=== PATIENT | female | born 1960 | race Caucasian/White ===

== ENCOUNTER 2018-12-30 11:02 | Inpatient (IN) | payer OTHER, MEDICAID ==
[2018-12-30] MEDS ORDERED: IOPAMIDOL (ISOVUE-300) 100 ML BTL ONE (12:34)
[2018-12-30] MEDS ORDERED: ACETAMINOPHEN 325 MG TAB PO PRN (12:40)
[2018-12-30] MEDS ORDERED: ONDANSETRON DISINTEGRATING 4 MG TAB PO PRN (12:40)
[2018-12-30] MEDS ORDERED: ONDANSETRON 4 MG/2 ML VIAL IVP PRN (12:40)
[2018-12-30 16:34] LABS: INR 1.09 (0.83-1.16); PROTIME(PATIENT) 13.7 SEC (12.0-15.0)
--- NOTE | 2018-12-30 23:02 | WOCRNPDOC ---
WOCRN Advanced Assessment Note - Skin Integrity Problem, Advanced Assess Sacrum Dermatitis Dressing Type: Open to Air Integumentary Issue Intervention: Barrier Cream Applied Deborah Wound Tissue: Blanching Wound Bed Color: [place] Wound Bed Constitution: Red/[place] - Non Granular Tissue Peripheral Edema Location & Description: Patient rolled to her left side with assist from ROBERT Call. Area cleaned with a deborah wipe. Patient with an anatomical depression over the sacrum and intertriginal dermatitis at the base where skin touches skin. Recommend calazime cream BID to clean skin. Wound care will not continue to round. Right Ischial Tuberosity Dressing Type: Open to Air Deborah Wound Tissue: Intact, Dry Wound Bed Color: [place] Skin Integrity Problem Comment: Patient with dry, peeling but intact skin to right ischial tuberosity. Patient states that she has never had a pressure injury but there is a small area of scarring to the area, possibly from a previous pressure injury. Will protect and moisturize the skin and add a pump to her bed to better the surface for her. As there is currently no wound, wound care will not continue to round.
[2018-12-31] MEDS: D5W 1/2 NS 1,000 ML IV SCH (10:45)
[2018-12-31] MEDS ORDERED: fentaNYL 100 MCG/2 ML INJ ONE ×3 (11:52→16:35)
[2018-12-31] MEDS ORDERED: PROPOFOL 200 MG/20 ML VIAL ONE (11:52)
[2018-12-31] MEDS ORDERED: MINERAL OIL 10 ML VIAL ONE (11:59)
[2018-12-31] MEDS ORDERED: levOFLOXACIN 500 MG/DEXTROSE 100 ML IV ONE (12:00)
[2018-12-31] MEDS ORDERED: IOPAMIDOL (ISOVUE-300) 100 ML BTL ONE ×2 (12:00→17:00)
[2018-12-31] MEDS ORDERED: LR 1,000 ML IV ONE (12:27)
[2018-12-31] MEDS ORDERED: GLYCOPYRROLATE 0.2 MG/1 ML VIAL ONE (12:35)
[2018-12-31] MEDS ORDERED: METOCLOPRAMIDE 10 MG/2 ML VIAL ONE (12:35)
[2018-12-31] MEDS ORDERED: PHENYLEPHRINE HCL 100 MCG/ML SYR ONE (12:35)
[2018-12-31] MEDS ORDERED: DEXAMETHASONE 4 MG/ML VIAL ONE (13:14)
--- NOTE | 2018-12-31 13:26 | POSTOPPROG ---
Post Op Note Date of Operation: 01/01/19 Surgeon: Helder Venegas (# [id number]) Anesthesia: GET(General Endotracheal) Pre-op Diagnosis: Large volume left nephroureterolithiasis Post-op Diagnosis: Large volume left nephroureterolithiasis Procedure: Left PCNL for stone volume < 2 cm & fluoroscopic guidance > 1 hour Findings: See op note Inf/Abcess present in the surg proc area at time of surgery?: No EBL: 50-100 (50 cc) Complications: None Bowel Protocol: N/A Clean Closure Performed: N/A Drains: Nephrostomy (14 Fr. Left nephrostomy tube, 8x28 cm left ureteral stent) Specimen(s): None
--- NOTE | 2018-12-31 14:36 | ASMTCMCOM ---
CM Note CM Note Notes: Patient admitted for removal or ureteral stone. She is s/p nephrostomy tube placement at [facility]. Patient lives alone. She has skilled and unskilled help through the Medicaid HCBS program. Her RN/EXHAUSTER are through [facility] (ROBERT Raymundo [phone]) and her homemaking is with [facility]. Her sister Carolyn lives nearby and is helpful. I anticipate she will d/c home with the same services. Case Management will follow. Date Signed: 12/31/2018 02:34 PM Electronically Signed By:Jaquelin Little RN
--- NOTE | 2018-12-31 15:02 | PDMN ---
Medical Necessity Medical necessity: Pt meets IP criteria per MD & MCG SG-US Urologic Surgery or Procedure; est los >2 mn for eval/tx of ureteral stone s/p nephrostomy tube placement; admit for L PCNL, further monitoring & Hospitalist consult; complex hx w/multiple medical problems; per H&P & order 12/30/18
[2018-12-31] MEDS ORDERED: ROCURONIUM 50 MG/5 ML VIAL ONE (16:39)
[2018-12-31] MEDS ORDERED: MEPERIDINE 25 MG/0.5 ML AMP IVP PRN (16:44)
[2018-12-31] MEDS ORDERED: ONDANSETRON 4 MG/2 ML VIAL IVP PRN (16:44)
[2018-12-31] MEDS ORDERED: HYDROmorphONE/DILAUDID 1 MG/ML INJ IVP PRN ×2 (16:44→17:40)
[2018-12-31] MEDS ORDERED: fentaNYL 100 MCG/2 ML INJ IVP PRN (16:44)
[2018-12-31] MEDS ORDERED: METOCLOPRAMIDE 10 MG/2 ML VIAL IVP PRN (16:44)
[2018-12-31] MEDS ORDERED: PROMETHAZINE HCL 25 MG/ML INJ IVP PRN (16:44)
[2018-12-31] MEDS ORDERED: NALOXONE HCL 0.4 MG/ML INJ IVP PRN (16:44)
[2018-12-31] MEDS ORDERED: LABETALOL HCL 5 MG/ML 20 ML MDV IVP PRN (16:44)
[2018-12-31] MEDS ORDERED: LR 500 ML IV PRN (16:44)
[2018-12-31] MEDS ORDERED: ALBUTEROL 3 ML DEYVIAL IH PRN (16:44)
--- NOTE | 2018-12-31 17:12 | POSTANESTH ---
Post Anesthetic Evaluation Cardiovascular Status: Normal, Stable Respiratory Status: Normal, Stable Level of Consciousness/Mental Status: Can Participate in Eval Pain Control: Adequate, Prn Tx Ordered Nausea/Vomiting Control: Adequate, Prn Tx Ordered Complications Possibly Related to Anesthesia: None Noted
[2018-12-31] MEDS ORDERED: HYDROCODONE/APAP 5/325 TAB PO PRN (17:40)
--- NOTE | 2018-12-31 18:02 | PDCONSULT ---
Parachute Crown Sewer Note: The patient is a pleasant 58-year-old female with past medical history of fairly advanced multiple sclerosis, nephrolithiasis, neurogenic bladder secondary to MS, chronic pain, spasticity, hypertension, urinary retention who was admitted by Urology for placement of of percutaneous nephrostomy with nephrolithotomy for impacted left renal stone at the [facility]. She is currently postop in the PACU. She does complain of some left-sided pain but seems to be well managed although she was just given a large dose of fentanyl. She denies any nausea or vomiting, chest pain, shortness of breath or other symptoms. Past medical history Fairly advanced multiple sclerosis Hypertension Nephrolithiasis Neurogenic bladder Spasticity Urinary retention Chronic suprapubic catheter Past surgical history Cholecystectomy Family history Noncontributory Social history She smokes cigarettes around to have a pack-a-day denied alcohol or drug use Allergies Latex and Tegretol Medications See medication reconciliation list Review of systems Ten point review systems was negative except as per HPI Objective Vitals Blood pressure 141/79, heart rate 81, respirations 16, oxygen saturation 95% on room air, temperature 36.5 degrees C General- obese female in no acute distress, lethargic HEENT- PERRLA, mucous membranes moist pink and acyanotic head is atraumatic normocephalic Cardiovascular- regular rhythm and rate no murmurs rubs gallops Lungs- clear to auscultation bilaterally Abdomen- nontender nondistended in all 4 quadrants with no organomegaly no guarding or rebound - left percutaneous nephrostomy in place, suprapubic catheter in place ostomy is clean and non erythematous. Extremities- no clubbing cyanosis edema or calf pain Skin- lesions rashes or ecchymosis Neuro- cranial nerves 2-12 grossly and trach no focal neurologic deficits, alert and oriented x3 Psych- mood and affect are appropriate LAD- no lymphadenopathy Assessment plan 58-year-old female with multiple sclerosis chronic suprapubic catheter admitted for impacted nephrolithiasis at the [facility] Nephrolithiasis- patient is postop day 0 status post placement of a left percutaneous nephrostomy with nephrolithotomy done by Interventional Radiology in conjunction with Urology. -postop management per Urology -continue antibiotics for infection Pyelonephritis- Patient was started on levofloxacin 750 mg q.day Multiple sclerosis- has a chronic port due to poor venous access. On Ocrevus. Would continue her medications for bladder spasms and spasticity. Hypertension- resume home Norvasc Spasticity- continue home Neurontin, tizanidine, and baclofen Hyperlipidemia- resume statin when taking p.o. Depression- on Prozac which should be fine to continue Prophylaxis- SCD, if she remains in-house would start Lovenox Dispo- inpatient for nephrolithiasis with placement of percutaneous nephrostomy Thank you for allowing us to participate in the care of this patient. Medicine will continue to follow
[2018-12-31] MEDS ORDERED: ONDANSETRON DISINTEGRATING 4 MG TAB PO PRN (20:57)
[2018-12-31] MEDS ORDERED: POLYETHYLENE GLYCOL 3350 17 GM PKT PO PRN (20:57)
[2018-12-31] MEDS ORDERED: MAGNESIUM HYDROXIDE 30 ML UDCUP PO PRN (20:57)
[2018-12-31] MEDS ORDERED: SENNOSIDES 1 TAB PO PRN (20:57)
[2018-12-31] MEDS ORDERED: ATORVASTATIN CALCIUM 10 MG TAB PO SCH (21:00)
[2018-12-31] MEDS: GABAPENTIN 400 MG CAP PO SCH (21:25)
[2018-12-31] MEDS: traMADol 50 MG TAB PO SCH (21:26)
[2018-12-31] MEDS: BACLOFEN 10 MG TAB PO SCH (21:27)
[2018-12-31] MEDS: OXYBUTYNIN CHLORIDE 5 MG TAB PO SCH (21:27)
[2018-12-31] MEDS: DOCUSATE SODIUM 100 MG CAP PO SCH (21:27)
[2018-12-31] MEDS: FLUoxetine 20 MG CAP PO SCH (21:34)
[2019-01-01] MEDS: D5W 1/2 NS 1,000 ML IV SCH (02:29)
[2019-01-01] MEDS: FLUoxetine 20 MG CAP PO SCH (09:27)
[2019-01-01] MEDS: traMADol 50 MG TAB PO SCH ×2 (09:28→17:03)
[2019-01-01] MEDS: BACLOFEN 10 MG TAB PO SCH ×2 (09:29→17:04)
[2019-01-01] MEDS: DOCUSATE SODIUM 100 MG CAP PO SCH (09:29)
[2019-01-01] MEDS: GABAPENTIN 400 MG CAP PO SCH ×2 (09:29→17:04)
[2019-01-01] MEDS: OXYBUTYNIN CHLORIDE 5 MG TAB PO SCH ×2 (09:29→17:03)
--- NOTE | 2019-01-01 10:28 | GOP ---
[f rep st] OPERATIVE REPORT DATE OF OPERATION: 12/31/2018 SURGEON: Helder Venegas MD ANESTHESIA: General endotracheal. PREOPERATIVE DIAGNOSIS: Large-volume left nephrolithiasis (greater than 2 cm) with history of urosepsis requiring nephrostomy tube placement. POSTOPERATIVE DIAGNOSIS: Large volume left nephroureterolithiasis (greater than 2 cm) with history of urosepsis requiring nephrostomy tube placement. PROCEDURE PERFORMED: 1. Right percutaneous nephrostolithotomy up to 2 cm with fluoroscopic guidance greater than 1 hour. 2. Placement of antegrade right ureteral catheterization and attempted stenting by way of established nephrostomy tract utilizing fluoroscopic guidance. FINDINGS: Large severely impacted left proximal ureteral calculus. Another calculus that was noted on preoperative CT imaging in the left upper pole was not visualized during this operation. SPECIMENS: None. ESTIMATED BLOOD LOSS: Approximately 50 cc. INDICATIONS: This woman was admitted to the hospital yesterday (12/30) following left-sided antegrade nephrostogram in preparation for surgery on December 31. The indications for the procedures as well as potential risks and complications were discussed with the patient and her sister (sister has power of patent attorney) in comprehensive detail prior to surgery. All questions were answered and they wished to proceed as scheduled. DESCRIPTION OF PROCEDURE: The patient was brought to the operating room and administered general endotracheal anesthesia. She was carefully placed in the prone position with all appropriate pressure points padded. Care was taken to not cause displacement of her indwelling chronic suprapubic catheter and padding was also provided around her colostomy. The back was sterilely prepped and draped in standard fashion. Dr. Kincaid from Interventional Radiology then proceeded to attempt to place a working nephroscopic sheath through the established mid pole nephrostomy tract. However, due to the severe impaction of the left proximal ureteral calculus, measuring approximately 17-18 mm long, he was unable to gain access with a wire around the calculus and into the ureter. There was also a fairly acute angle between the established nephrostomy tract and the proximal ureter that would make it very difficult to treat the large calculus through this access. Therefore, after collective discussions between myself and Dr. Kincaid, he proceeded with placing a new nephroscopic tract in an upper pole calyx to allow for easier access to the renal pelvis and proximal ureter. He was still unable to gain wire access beyond the calculus through this new approach. Nonetheless, he placed a wire into the renal pelvis and a working 32-St Helenian nephroscopic sheath. I then began the nephroscopic portion of the procedure with a rigid nephroscope through the upper pole tract. The renal collecting system urothelium was noted to be quite disrupted and chronically inflamed. The renal pelvis was very small. I was ultimately able to identify the ureteropelvic junction, but could not advance the ureteroscope through the UPJ due to its very small caliber/ diameter. I then switched to flexible nephroscopy. Again, the ureter was extremely tight and would not allow for passage of the nephroscope through the ureteropelvic junction due to its small caliber. However, using fluoroscopic guidance, I was able to pass a 0.035 inch angle-tipped hydrophilic guidewire through this approach and around the large impacted proximal ureteral calculus, and advanced it into the bladder as confirmed fluoroscopically. I placed 2 wires ultimately through this approach down the left ureter and into the bladder. I then decided to switch to flexible ureteroscopy through the established nephrostomy tract. I was able to navigate the ureteroscope over one of the placed wires and down into the proximal ureter until I was able to visualize the large proximal impacted ureteral calculus. I then removed the guidewire running through the flexible ureteroscope in order to allow for treatment of the calculus. There was a severe amount of periureteral inflammation and mucosal edema surrounding the severely impacted calculus. The appearance was consistent with a calculus that had been at that location and impacted for potentially several months, if not longer. I then used a 200 micron holmium laser fiber to carefully fragment the large impacted calculus as much as possible. This created numerous small fragments which I tried to flush with normal saline through the scope using an additional syringe for increased hydrostatic pressure. The visualization ultimately became more and more difficult due to small amounts of bleeding that limited visualization through my small working instrument. I fragmented what appeared to be at least 60-70% of the calculus. There was still some calculus remaining in the proximal ureter that appeared to be adherent to the ureteral wall, which I left in situ due to poor visualization at this point. I then decided it would be best to place an antegrade left ureteral stent followed by a separate left-sided nephrostomy tube. I then removed the endoscopic instruments, as well as the 32-St Helenian nephroscopic sheath while keeping [address] down the left ureter and into the bladder. I used a combination of different wires and peel-away sheaths in order to try and place an antegrade hydrophilic left ureteral stent. However, I encountered a fair amount of buckling in the region of the renal pelvis that made it difficult to advance an antegrade stent all the way into the bladder. I then enlisted Dr. Kincaid's assistance and he was able to fully advance a ureteral stent alongside the remaining portion of the calculus and into the left ureter. The stent was properly positioned as noted fluoroscopically in the bladder as well as in the kidney. This was an 8-St Helenian x 28 cm ureteral stent. He then proceeded to also place a 14-St Helenian nephrostomy tube which was pigtailed within the renal pelvis. I then secured the nephrostomy tube to the skin with a 2-0 silk suture. It was then dressed with 4x4s with a ski slope dressing, 4 x 4 gauze, then tape. The nephrostomy tube was connected to bag drainage. The patient was then turned back over to the supine position. She was ultimately awakened, extubated, transferred to her bed, then taken to recovery room. She tolerated the procedure well overall. COMPLICATIONS: None. DISPOSITION: She was transferred to the recovery room in stable condition and will be transferred back to the floor for postoperative care. She will ultimately need to undergo retrograde left ureteroscopy with treatment of the residual left ureteral calculus disease within a few weeks. I am hoping that the indwelling ureteral stent will allow for passive dilation of the ureter as well as reduce some of the periureteral inflammation in the area of the impacted calculus. Arrangements will also be made for an antegrade nephrostogram and removal of nephrostomy tube through Interventional Radiology for early next week. /[id number]/MODL MTDD
[2019-01-01] MEDS ORDERED: levOFLOXACIN 500 MG/DEXTROSE 100 ML IV ONE (11:00)
[2019-01-01 12:28] VITALS: BP 134/74
--- NOTE | 2019-01-01 15:02 | HOSPPROG ---
Hospitalist Progress Note Assessment/Plan: 58 yo F w MS pod 1 from complex procedure for distal L ureteral stone home today see dc summary Subjective: feels well. alert. ready for dc Objective: Vital Signs Temp Pulse Resp BP Pulse Ox 36.5 C 100 16 134/74 H 93 01/01/19 12:00 01/01/19 12:00 01/01/19 12:00 01/01/19 12:00 01/01/19 12:00 Laboratory Results 01/01/19 05:15 01/01/19 05:15 12/31/18 01/01/19 01/02/19 05:59 05:59 05:59 Intake Total 350 2900 Output Total 750 950 Balance -400 1950 PT 13.7 SEC (12.0-15.0) 12/30/18 16:18 INR 1.09 (0.83-1.16) 12/30/18 16:18 - Physical Exam Constitutional: no apparent distress, appears nourished Eyes: PERRL, anicteric sclera Ears, Nose, Mouth, Throat: moist mucous membranes, hearing normal Cardiovascular: regular rate and rhythym, no murmur, rub, or gallop Respiratory: no respiratory distress, no rales or rhonchi Gastrointestinal: normoactive bowel sounds, soft, non-tender abdomen Genitourinary: other (SP catheter), No barbosa in urethra Skin: warm, normal color Musculoskeletal: No full muscle strength Neurologic: AAOx3, sensation intact bilaterally Psychiatric: interacting appropriately ICD10 Worksheet Patient Problems: Problems Problem Status Onset Chest pain Acute
--- NOTE | 2019-01-01 15:03 | PDIAF ---
- Diagnosis Diagnosis: nephrolithiasis Code Status: Full Code - Medication Management Additional Medication Instructions: She will have bleeding in her urine until the nephrostomy tubes are removed. bleeding can very from day to day. Discharge Medications: electronically signed and located in the Home Medication List. - Orders Services needed: Home Correction Care Face to Face: I certify that this patient was under my care and that I had the required [id number] encounter meeting the encounter requirements on the discharge day. My findings support the fact that the patient is homebound as defined in Home Care Face to Face Continued: CMS Chapter 7 Medicare Benefits Manual 30.1.1 , The condition of the patient is such that there exists a normal inability to leave home and consequently, leaving home would require a considerable and taxing effort. - Follow Up Care Current Providers and Referrals: Doctor Not,On Staff, [Primary Care Provider] -
--- NOTE | 2019-01-01 15:20 | GDS ---
[f rep st] DISCHARGE SUMMARY DISCHARGE DIAGNOSES: 1. Multiple sclerosis with significant functional limitations, wheelchair-bound with ostomy and supr apubic catheter. 2. Distal left ureteral stone status post percutaneous nephrostomy tube with stent placement. Pleprasad e see operative note by Dr. Helder Venegas for details; uncomplicated procedure. 3. Hypertension. 4. Depression. Please see consultation by Dr. Singh Carmona. The patient is seen by hospital medicine service consult for assistance with medical comorbidities. The patient did well from a postoperative standpoint. She is discharged home today. She has outpati ent followup in place for nephrostomy tube maintenance and ultimately removal, as well as a retrograd e attempt at complete removal or the stone as this is not accomplished in the anterograde procedure. I refer the reader to the operative note for further details. Greater than 30 minutes was spent on this discharge. /[id number]/MODL
--- NOTE | 2019-01-01 15:50 | ASMTDCNOTE ---
Case Management Discharge Discharge Order Complete? Answers: Yes Patient to Obtain Answers: via Family Medications Transportation Arranged Answers: Family/Friends Faxed Final Orders Answers: Yes Notes: [facility] to [facility] Agency/Facility Transfer Answers: Yes Notes: [facility] Report Printed & Faxed to home care Receiving Agency Family Notified Answers: Yes Notes: Sister present Discharge Comments Notes: CM met with patient and sister prior to discharge and informed them CM contacted [facility] of patient discharge and also sent discharge info. The patient's sister states she will contact [facility] for Homemaker support and will transport patient home. CM available to support if additional CM/DC needs arise. Date Signed: 01/01/2019 03:49 PM Electronically Signed By:Heidy Taveras
--- NOTE | 2019-01-01 16:55 | SOAPPROG ---
MIKAEL Progress Note Assessment/Plan: Assessment: POD 1 s/p left PCNL and antegrade ureteral stent placement - stable. Plan: OK to discharge home w/ nephrostomy tube, to be removed as an outpatient through IR on Friday. My office will coordinate scheduling outpatient left ureteroscopy for treatment of remaining left ureteral & renal stone burden. Subjective: Complains of occasional mild left flank pain. Otherwise, no complaints. Objective: Vital Signs Temp Pulse Resp BP Pulse Ox 36.5 C 100 16 134/74 H 93 01/01/19 12:00 01/01/19 12:00 01/01/19 12:00 01/01/19 12:00 01/01/19 12:00 Laboratory Results 01/01/19 05:15 01/01/19 05:15 12/31/18 01/01/19 01/02/19 05:59 05:59 05:59 Intake Total 350 2900 Output Total 750 950 Balance -400 1950 PT 13.7 SEC (12.0-15.0) 12/30/18 16:18 INR 1.09 (0.83-1.16) 12/30/18 16:18 Physical Exam - Physical Exam General Appearance: alert, obese Abdomen: soft (obese), other (SP tube draining clear urine) Back: Other (nephrostomy tube draining lightly blood-tinged urine) Neuro/Psych: alert, normal mood/affect ICD10 Worksheet Patient Problems: Problems Problem Status Onset Chest pain Acute
== END 2019-01-01 18:54 | disposition home health service (06) | DRG 661 ==
LOC: FIMAGING 11:02 → F3E 12:40 → F1N 13:23
PROVIDERS: ADMIT Specialist; ATTEND Specialist
DX: N20.2 Calculus of kidney with calculus of ureter (principal); G35 Multiple sclerosis; Z99.3 Dependence on wheelchair; I10 Essential (primary) hypertension; F32.9 Major depressive disorder, single episode, unspecified; R33.9 Retention of urine, unspecified; N31.9 Neuromuscular dysfunction of bladder, unspecified; E78.5 Hyperlipidemia, unspecified; G89.29 Other chronic pain; Z72.0 Tobacco use; Z93.6 Other artificial openings of urinary tract status; Z93.3 Colostomy status
CPT/HCPCS: C1725; C1729; C1758; C1769; C1894; J1100; J1642; J1956; J2370; J2704; J2765; J3010; Q9967

== ENCOUNTER 2019-01-02 16:34 | Inpatient (IN) | payer OTHER, MEDICAID ==
[2019-01-02] MEDS ORDERED: ACETAMINOPHEN 325 MG TAB PO ONE (17:13)
--- NOTE | 2019-01-02 17:13 | EDPHY ---
H & P Stated Complaint: kidney stone removal 01/01, fever starting this am, pain in left abdomen Time Seen by Provider: 01/02/19 16:44 HPI/ROS: CHIEF COMPLAINT: Fever HISTORY OF PRESENT ILLNESS: 58-year-old female with multiple sclerosis presents with fever. She was recently admitted for urinary obstruction secondary to a 2 cm proximal left ureteral stone. She had a nephrostomy tube and stent placed and underwent lithotripsy. She was discharged home yesterday feeling fine. Onset of fever this morning, associated with generalized weakness. Usually is able to ambulate on her own, but today is having trouble sitting up unassisted because of weakness. She is tolerating oral fluids and food well, without nausea or vomiting. Mild left-sided abdominal pain started yesterday. She currently has a German catheter and a left nephrostomy tube in place. REVIEW OF SYSTEMS: complete 10 point ROS reviewed and is negative except for the noted elements in the HPI - Personal History Current Tetanus/Diphtheria Vaccine: Yes Current Tetanus Diphtheria and Acellular Pertussis (TDAP): Yes - Medical/Surgical History Hx Asthma: No Hx Chronic Respiratory Disease: No Hx Diabetes: No Hx Cardiac Disease: No Hx Renal Disease: No Hx Cirrhosis: No Hx Alcoholism: No Hx HIV/AIDS: No Hx Splenectomy or Spleen Trauma: No Other PMH: MS, left-sided weakness, kidney stones, colostomy, left nephrostomy - Social History Smoking Status: Heavy smoker Alcohol Use: Sober Drug Use: None - Physical Exam Exam: General Appearance: Alert, pleasant, appears fatigued Eyes: Pupils equal and round, no conjunctival pallor ENT, Mouth: Mucous membranes moist Neck: Normal inspection Respiratory: Lungs are clear to auscultation anteriorly Cardiovascular: Regular tachycardia Gastrointestinal: Abdomen is soft, mild left upper quadrant tenderness Neurological: Alert and oriented, left-sided weakness Skin: Warm and dry, no rash Extremities: Normal inspection Psychiatric: Mood and affect normal Constitutional: Initial Vital Signs Temperature (C) 37.4 C 01/02/19 16:42 Heart Rate 110 H 01/02/19 16:42 Respiratory Rate 18 01/02/19 16:42 Blood Pressure 133/73 H 01/02/19 16:42 O2 Sat (%) 94 01/02/19 16:42 O2 Delivery Mode Room Air O2 (L/minute) 2 Allergies/Adverse Reactions: carbamazepine [From Tegretol] Allergy (Verified 01/02/19 16:42) blisters/ rash latex Allergy (Verified 01/02/19 16:42) blisters/ rash Home Medications: Medication Instructions Recorded Aspirin [Aspirin 325 mg (*)] 325 mg PO DAILY 12/30/18 Baclofen [Baclofen 10 mg (*)] 10 mg PO TID@08,1430,20 12/30/18 Calcium Carb W/Vit D [Calcium Carb 500 mg PO DAILY14 12/30/18 W/Vit D 500/200 (*)] Docusate Sodium [Colace 100 MG (*)] 100 mg PO BID 12/30/18 FLUoxetine [Prozac 20 MG (*)] 80 mg PO DAILY 12/30/18 Gabapentin [Neurontin 400 MG (*)] 400 mg PO TID@08,1430,12/30/18 Herbals/Supplements -Info Only 1 ea PO DAILY 12/30/18 Ibuprofen [Motrin (*)] 600 mg PO Q6HRS PRN 12/30/18 Magnesium Hydroxide [Milk of 5 ml PO HS PRN 12/30/18 Magnesia] Naproxen Sodium [Aleve 220 MG (*)] 220 mg PO BID PRN 12/30/18 Nystatin [Mycostatin Cream (RX)] 1 rubi TP BID PRN 12/30/18 Ocrelizumab [Ocrevus] 600 mg IV .[id number] 12/30/18 Ondansetron Odt [Zofran Odt 4 mg 4 mg PO Q4 PRN 12/30/18 (*)] Oxybutynin Chloride [Ditropan] 5 mg PO TID@08,1430,12/30/18 Polyethylene Glycol 3350 [Miralax 17 gm PO DAILY PRN 12/30/18 17 gm (*)] Sennosides [Senna Lax] 8.6 mg PO DAILY PRN 12/30/18 Simvastatin [Zocor] 20 mg PO HS 12/30/18 amLODIPine BESYLATE [Norvasc 10 mg 10 mg PO DAILY 12/30/18 (*)] tiZANidine HCL [Zanaflex 2MG (*)] 4 mg PO DAILY@08 12/30/18 tiZANidine HCL [Zanaflex 2MG (*)] 8 mg PO HS 12/30/18 traMADol [Ultram 50 mg (*)] 100 mg PO TID@08,1430,20 12/30/18 Medical Decision Making ED Course/Re-evaluation: This patient presents with fever and generalized weakness. Clinical presentation strongly suggests urinary source for infection, especially given recent urologic procedure, nephrostomy and German catheter placement. Urinalysis reveals pyuria and bacteriuria, consistent with urinary tract infection. Urine culture sent. Chest x-ray is unremarkable. Urine and blood cultures drawn. Rocephin 1 g IV given. Does not meet SIRS criteria. IV normal saline 1 L given and Tylenol 650 mg orally. The patient remained stable throughout her emergency department stay. The hospitalist service was consulted for admission. Differential Diagnosis: Differential diagnosis includes pyelonephritis, cholecystitis, influenza, cellulitis, pneumonia, abscess, meningitis. - Data Points Laboratory Results: Laboratory Results 01/02/19 16:47 01/02/19 16:47 Microbiology Results: MICROBIOLOGY 01/02/19 16:49 Urine,Catheterized Urine Culture - Preliminary Yeast Species Medications Given: Acetaminophen (Tylenol) 650 mg PO Q4HRS PRN PRN Reason: Pain, Mild/Fever, Can Take PO Stop: 07/01/19 18:33 Last Admin: 01/03/19 18:43 Dose: 650 mg Atorvastatin Calcium (Lipitor) 10 mg PO HS [facility] Stop: 07/01/19 21:59 Last Admin: 01/02/19 23:20 Dose: 10 mg Baclofen (Baclofen) 10 mg PO TID@08,1429,20 [facility] Stop: 07/02/19 07:59 Last Admin: 01/03/19 14:14 Dose: 10 mg Docusate Sodium (Colace) 100 mg PO BID EMILY Stop: 07/02/19 08:59 Last Admin: 01/03/19 08:09 Dose: 100 mg Fluconazole (Diflucan) 200 mg PO DAILY [facility] Stop: 02/01/19 18:44 Last Admin: 01/03/19 08:29 Dose: 200 mg Fluoxetine HCl (Prozac) 80 mg PO DAILY [facility] Stop: 07/02/19 08:59 Last Admin: 01/03/19 08:09 Dose: 80 mg Gabapentin (Neurontin) 400 mg PO TID@08,1430,20 [facility] Stop: 07/02/19 07:59 Last Admin: 01/03/19 14:14 Dose: 400 mg Ceftriaxone Sodium/Dextrose (Rocephin 1 Gm (Premix)) 50 mls @ 100 mls/hr IV DAILY [facility] PRN Reason: Protocol Stop: 02/02/19 08:59 Last Admin: 01/03/19 08:03 Dose: 50 mls Sodium Chloride (Ns) 1,000 mls @ 125 mls/hr IV CONT [facility] Stop: 07/01/19 18:44 Last Admin: 01/03/19 14:17 Dose: 1,000 mls Oxybutynin Chloride (Ditropan) 5 mg PO TID@08,1430,20 [facility] Stop: 07/02/19 07:59 Last Admin: 01/03/19 14:14 Dose: 5 mg Tizanidine HCl (Zanaflex) 4 mg PO DAILY@08 [facility] Stop: 07/02/19 07:59 Last Admin: 01/03/19 08:08 Dose: 4 mg Tramadol HCl (Ultram) 100 mg PO TID@08,1430,20 [facility] Stop: 07/02/19 07:59 Last Admin: 01/03/19 14:12 Dose: 100 mg Discontinued Medications Acetaminophen (Tylenol) 650 mg PO EDNOW ONE Stop: 01/02/19 17:14 Last Admin: 01/02/19 17:35 Dose: 650 mg Heparin Sodium (Porcine) (Heparin Sc Injection) 5,000 unit SC Q8 [facility] Stop: 07/01/19 21:59 Last Admin: 01/02/19 20:48 Dose: 5,000 unit Sodium Chloride (Ns) 1,000 mls @ 0 mls/hr IV ONCE ONE; Wide Open PRN Reason: Protocol Stop: 01/02/19 17:34 Last Admin: 01/02/19 17:46 Dose: 1,000 mls Ceftriaxone Sodium/Dextrose (Rocephin 1 Gm (Premix)) 50 mls @ 100 mls/hr IV EDNOW ONE PRN Reason: Protocol Stop: 01/02/19 18:23 Last Admin: 01/02/19 18:35 Dose: 50 mls Departure - Departure Disposition: [facility] Inpatient Acute Clinical Impression: Urinary tract infection Qualifiers: Urinary tract infection type: catheter-associated UTI Indwelling urinary catheter type: indwelling urethral catheter Encounter type: initial encounter Qualified Code(s): T83.511A - Infection and inflammatory reaction due to indwelling urethral catheter, initial encounter; N39.0 - Urinary tract infection , site not specified; N39.0 - Urinary tract infection, site not specified Condition: Fair
[2019-01-02 17:17] LABS: PLATELET COUNT 197 10^3/uL (150-400)
[2019-01-02] MEDS ORDERED: NS 1,000 ML IV ONE (17:33)
[2019-01-02] MEDS ORDERED: HYDROmorphONE/DILAUDID 1 MG/ML INJ IVP PRN (18:34)
[2019-01-02] MEDS ORDERED: ACETAMINOPHEN 325 MG TAB PO PRN (18:34)
[2019-01-02] MEDS: NS 1,000 ML IV SCH (20:50)
[2019-01-02] MEDS ORDERED: SENNOSIDES 1 TAB PO PRN (21:56)
[2019-01-02] MEDS ORDERED: POLYETHYLENE GLYCOL 3350 17 GM PKT PO PRN (21:56)
[2019-01-02] MEDS ORDERED: NYSTATIN 15 GM CR TUBE TP PRN (21:56)
[2019-01-02] MEDS ORDERED: HEPARIN 5,000 UNIT/0.5 ML INJ SC SCH (22:00)
[2019-01-02] MEDS: ATORVASTATIN CALCIUM 10 MG TAB PO SCH (23:20)
[2019-01-02] MEDS: FLUCONAZOLE 100 MG TAB PO SCH (23:24)
--- NOTE | 2019-01-03 00:38 | GHP ---
[f rep st] HISTORY AND PHYSICAL DATE OF ADMISSION: 01/02/2019 CHIEF COMPLAINT: Subjective fevers. HISTORY OF PRESENT ILLNESS: The patient is a pleasant 58-year-old female with a past medical history of multiple sclerosis who was recently here at the hospital and found to have a large left-sided nep hroureterolithiasis necessitating nephrostomy tube. At baseline, she has a suprapubic catheter. Ple ase refer to her operative note from 12/30/2018 for details. After being discharged home, this morni ng she started noting subjective fevers and presented to the [facility] for further evaluation. Her urinalysis was notable for 2+ leukocyte esterase with 50 to 182 WBCs. Yeast was also noted as well as 1+ bacteria. She was given a dose of ceftriaxone in the emergency r oom. PAST MEDICAL HISTORY: Multiple sclerosis, hypertension, nephrolithiasis, neurogenic bladder with uri ne retention and suprapubic catheterization chronically. PAST SURGICAL HISTORY: Cholecystectomy. MEDICATIONS: Amlodipine 10 mg daily, aspirin 325 mg daily, baclofen 10 mg 3 times a day, Colace 100 mg twice a day, Prozac 80 mg daily, gabapentin 400 mg 3 times a day, Ocrevus 600 mg IV every 6 months , Ditropan 5 mg 3 times a day, MiraLAX 17 g daily, Senokot 8.6 mg daily, simvastatin 20 mg nightly, Z anaflex 8 mg nightly and 4 mg a day, tramadol 100 mg 3 times a day. ALLERGIES: Carbamazepine, latex. FAMILY HISTORY: Patient has 1 brother and 1 sister without any major health issues. SOCIAL HISTORY: Patient lives independently. Her sister is her power of defense attorney. She is a smoker, she smokes a half pack per day. REVIEW OF SYSTEMS: CONSTITUTIONAL: Positive for subjective fevers. No report of rigors. No recent weight loss. ENT: No recent upper respiratory illnesses. CARDIOVASCULAR: No complaints of any ch est pains, palpitations, or syncopal episodes. RESPIRATORY: No complaints of shortness of breath or productive cough. GI: No nausea or vomiting. : Chronic suprapubic catheter. NEUROLOGIC: No c omplaints of headaches or focal weakness of new onset. HEMATOLOGIC: No history of any deep vein thr ombosis or pulmonary embolism. PSYCHIATRIC: Patient is on SSRI therapy. ENDOCRINE: No history of heat intolerance. SKIN: No new skin rashes. MUSCULOSKELETAL: No focal joint pains or swelling or erythema. PHYSICAL EXAMINATION: VITAL SIGNS: Temperature 37.4, blood pressure 133/73, heart rate 110, respira tions 18, satting 94%. GENERAL: Patient appeared comfortable. She was awake and conversant, orient ed. HEENT: Extraocular movements intact. No scleral icterus. NECK: Supple. No thyroid enlargeme nt appreciated. CHEST: Clear on auscultation with normal respiratory effort. HEART: Regular. No murmurs noted. ABDOMEN: Nontender, nondistended. Suprapubic catheter in place with bloody-appearin g urine. She has a nephrostomy tube as well on the left with minimal amount of bloody drainage. EXT REMITIES: No significant pitting edema or calf pain with palpation. NEUROLOGIC: Baseline weakness secondary to her MS. LABORATORY: White blood cell count 7, hemoglobin 13, platelets 197. Sodium 137, potassium 3.7, chlo ride 97, bicarb 25, BUN 20, creatinine 0.9, glucose 129. ASSESSMENT AND PLAN: 1. Complicated urinary tract infection. I cannot find any prior urine cultures to help guide antibi otic therapy. I recommend we continue ceftriaxone 1 g daily. I have ordered fluconazole as well con sidering yeast was noted and she had recent instrumentation. 2. Multiple sclerosis. Patient is treated with Ocrevus injection every 6 months. 3. Hypertension. Will hold her amlodipine overnight. 4. Deep venous thrombosis prophylaxis: Compression devices for now. I will hold heparin as notable hematuria in her suprapubic catheter. DISPOSITION: Will admit under inpatient status. /[id number]/MODL
[2019-01-03] MEDS: NS 1,000 ML IV SCH ×2 (05:39→14:17)
[2019-01-03 06:00] LABS: PLATELET COUNT 105 10^3/uL (150-400)
[2019-01-03] MEDS: GABAPENTIN 400 MG CAP PO SCH ×3 (08:08→20:07)
[2019-01-03] MEDS: OXYBUTYNIN CHLORIDE 5 MG TAB PO SCH ×3 (08:08→20:09)
[2019-01-03] MEDS: traMADol 50 MG TAB PO SCH ×3 (08:08→20:08)
[2019-01-03] MEDS: BACLOFEN 10 MG TAB PO SCH ×3 (08:08→20:08)
[2019-01-03] MEDS: FLUoxetine 20 MG CAP PO SCH (08:09)
[2019-01-03] MEDS: DOCUSATE SODIUM 100 MG CAP PO SCH ×2 (08:09→20:08)
[2019-01-03] MEDS: FLUCONAZOLE 100 MG TAB PO SCH (08:29)
--- NOTE | 2019-01-03 09:57 | PDMN ---
Medical Necessity Medical necessity: MCG M300 UTI, A-2 days: 58 yo w/ recent hospitalization for large L nephroureterolithiasis necessitating nephrostomy tube presents w/ subjective fevers and +UTI. Per MD this is complicated UTI w/ no prior urine cx to guide antibx tx, pt started on IVF, IV antibx and fluconazole. BC and urine cx pending. Admit IP status - anticipate>2MN given complicated UTI w/ comorbidities and ongoing IV antibx beyond obs care. Hx MS, w/c bound, recent nephrostomy, HTN, neurogenic bladder, suprapubic cath in place.
--- NOTE | 2019-01-03 12:48 | HOSPPROG ---
Hospitalist Progress Note Assessment/Plan: 58 yo F w MS< recent urologic procedure a/w fever, pyuria UTI: complex procedure w 2 portals of entry for urine SP tube and perc neph both sites look good per nursing, perc neph tube was kinked, leaking continue ceftriaxone, await micor vanc considered for skin devan, hold for now MS; continue meds nephrolithiasis: in the midst of stged procedures for removal of impacted L UVJ stone proph: lmwh ms: continue meds dispo: inpt Subjective: cxr w n infiltrate (interp by me) Objective: Vital Signs Temp Pulse Resp BP Pulse Ox 36.4 C 75 18 126/68 H 92 01/03/19 11:38 01/03/19 11:38 01/03/19 11:38 01/03/19 11:38 01/03/19 11:38 Laboratory Results 01/03/19 05:40 01/03/19 05:40 01/02/19 01/03/19 01/04/19 05:59 05:59 05:59 Intake Total 500 Output Total 750 Balance -250 - Physical Exam Constitutional: no apparent distress, appears nourished Eyes: PERRL, anicteric sclera Ears, Nose, Mouth, Throat: moist mucous membranes, hearing normal Cardiovascular: regular rate and rhythym, no murmur, rub, or gallop Respiratory: no respiratory distress, no rales or rhonchi Gastrointestinal: normoactive bowel sounds, soft, non-tender abdomen Genitourinary: no bladder fullness, other (pink urine in SP tube. perc neph tube c/d/i), No barbosa in urethra Skin: warm, normal color Musculoskeletal: No full muscle strength Neurologic: AAOx3 ICD10 Worksheet Patient Problems: Problems Problem Status Onset Chest pain Acute
--- NOTE | 2019-01-03 14:42 | ASMTCMCOM ---
CM Note CM Note Notes: Patient discussed during clinical rounds. Sara returned to [facility] after discharge on 01/01/19 for treatment for UTI. Patient to discharge home to and return to care with [facility]. CM to follow. D/C Plan: [facility]. Date Signed: 01/03/2019 02:41 PM Electronically Signed By:Heidy Taveras
[2019-01-03] MEDS: ATORVASTATIN CALCIUM 10 MG TAB PO SCH (20:08)
[2019-01-04 04:31] LABS: PLATELET COUNT 147 10^3/uL (150-400)
[2019-01-04] MEDS ORDERED: ENOXAPARIN 40 MG/0.4 ML SYR SC SCH (09:00)
[2019-01-04] MEDS: BACLOFEN 10 MG TAB PO SCH ×3 (09:58→20:10)
[2019-01-04] MEDS: traMADol 50 MG TAB PO SCH ×3 (09:59→20:10)
[2019-01-04] MEDS: OXYBUTYNIN CHLORIDE 5 MG TAB PO SCH ×3 (09:59→20:10)
[2019-01-04] MEDS: GABAPENTIN 400 MG CAP PO SCH ×3 (09:59→20:11)
[2019-01-04] MEDS: DOCUSATE SODIUM 100 MG CAP PO SCH ×2 (10:00→20:11)
[2019-01-04] MEDS: FLUoxetine 20 MG CAP PO SCH (10:00)
[2019-01-04] MEDS: FLUCONAZOLE 100 MG TAB PO SCH (10:00)
--- NOTE | 2019-01-04 11:24 | ASMTCMCOM ---
CM Note CM Note Notes: Met with pt in her room. Pt states that she lives alone. Confirmed that she used [facility] for RN services. Sent referral to [facility] CM will continue to follow. CM D/C plan: Home with [facility] Date Signed: 01/04/2019 11:23 AM Electronically Signed By:Radha Sánchez
[2019-01-04] MEDS ORDERED: IOPAMIDOL (ISOVUE-300) 100 ML BTL ONE (13:57)
--- NOTE | 2019-01-04 15:40 | HOSPPROG ---
Hospitalist Progress Note Assessment/Plan: 58 yo F w MS< recent urologic procedure a/w fever, pyuria UTI: complex procedure w 2 portals of entry for urine SP tube and perc neph both sites look good per nursing, perc neph tube was kinked, leaking continue ceftriaxone, await micor vanc considered for skin devan, hold for now nephrostomy tube out MS; continue meds nephrolithiasis: in the midst of stged procedures for removal of impacted L UVJ stone proph: lmwh ms: continue meds dispo: inpt Subjective: case d/w dr flores. nehrostomy tube removed Objective: Vital Signs Temp Pulse Resp BP Pulse Ox 36.9 C 88 16 151/86 H 91 L 01/04/19 11:17 01/04/19 11:17 01/04/19 11:17 01/04/19 11:17 01/04/19 11:17 Microbiology 01/02/19 18:30 Blood Panel (PCR) - Final Blood No Organism Detected By Pcr Laboratory Results 01/04/19 04:10 01/04/19 04:10 01/03/19 01/04/19 01/05/19 05:59 05:59 05:59 Intake Total 500 1865 Output Total 750 1860 1025 Balance -250 5 -1025 - Physical Exam Constitutional: no apparent distress, appears nourished Eyes: PERRL, anicteric sclera Ears, Nose, Mouth, Throat: moist mucous membranes, hearing normal Cardiovascular: regular rate and rhythym, no murmur, rub, or gallop Respiratory: no respiratory distress, no rales or rhonchi Gastrointestinal: normoactive bowel sounds Genitourinary: no bladder fullness, No barbosa in urethra Skin: warm, normal color Musculoskeletal: full muscle strength Neurologic: AAOx3 Psychiatric: interacting appropriately Lymph, Heme, Immunologic: no cervical LAD ICD10 Worksheet Patient Problems: Problems Problem Status Onset Urinary tract infection Acute Chest pain Acute
[2019-01-04] MEDS: NS 1,000 ML IV SCH (19:20)
[2019-01-04] MEDS: ATORVASTATIN CALCIUM 10 MG TAB PO SCH (20:10)
[2019-01-05 05:11] LABS: PLATELET COUNT 169 10^3/uL (150-400)
--- NOTE | 2019-01-05 10:25 | HOSPPROG ---
Hospitalist Progress Note Assessment/Plan: 58 yo F w MS, recent urologic procedure a/w fever, pyuria UTI: complex procedure w 2 portals of entry for urine SP tube and perc neph both sites look good per nursing, perc neph tube was kinked, leaking micro from outside hosp shows myrick sens pseudomonas while she has clinically improved, she still has ureteral stent and needs 7 days rx from now (01/05) w levoflox nephrostomy tube out MS; continue meds nephrolithiasis: in the midst of stged procedures for removal of impacted L UVJ stone proph: lmwh ms: continue meds dispo: inpt Subjective: case d.w dr oroan. recent urine cx from [facility] w myrick sens pseudomonas Objective: Vital Signs Temp Pulse Resp BP Pulse Ox 36.6 C 73 18 155/100 H 90 L 01/05/19 08:00 01/05/19 08:00 01/05/19 08:00 01/05/19 08:00 01/05/19 08:00 Microbiology 01/02/19 18:30 Blood Panel (PCR) - Final Blood No Organism Detected By Pcr Laboratory Results 01/05/19 05:00 01/05/19 05:00 01/04/19 01/05/19 01/06/19 05:59 05:59 05:59 Intake Total 1864 2040 Output Total 1859 2074 Balance 5 -34 - Physical Exam Constitutional: no apparent distress, appears nourished Eyes: PERRL, anicteric sclera Ears, Nose, Mouth, Throat: moist mucous membranes, hearing normal Cardiovascular: regular rate and rhythym, no murmur, rub, or gallop Respiratory: no respiratory distress, no rales or rhonchi Gastrointestinal: normoactive bowel sounds, soft, non-tender abdomen Genitourinary: other (SP tube c/d/i. nephrostomy tube site looks good), No barbosa in urethra Skin: warm Musculoskeletal: No full muscle strength Neurologic: AAOx3 Psychiatric: interacting appropriately ICD10 Worksheet Patient Problems: Problems Problem Status Onset Urinary tract infection Acute Chest pain Acute
[2019-01-05] MEDS: FLUoxetine 20 MG CAP PO SCH (10:34)
[2019-01-05] MEDS: traMADol 50 MG TAB PO SCH ×3 (10:34→20:10)
[2019-01-05] MEDS: FLUCONAZOLE 100 MG TAB PO SCH (10:34)
[2019-01-05] MEDS: ENOXAPARIN 40 MG/0.4 ML SYR SC SCH (10:34)
[2019-01-05] MEDS: GABAPENTIN 400 MG CAP PO SCH ×3 (10:34→20:10)
[2019-01-05] MEDS: BACLOFEN 10 MG TAB PO SCH ×3 (10:35→20:10)
[2019-01-05] MEDS: DOCUSATE SODIUM 100 MG CAP PO SCH ×2 (10:35→20:11)
[2019-01-05] MEDS: OXYBUTYNIN CHLORIDE 5 MG TAB PO SCH ×3 (10:35→20:11)
--- NOTE | 2019-01-05 11:41 | ASMTCMCOM ---
CM Note CM Note Notes: Per Dr. Davis, pt will most likely D/C tomorrow (Saturday 01/06). [facility] has accepted her for continuation of RN and caregiver services. CM will be available should further needs arise. CM D/C Plan: Home with [facility] RN and caregiver services Date Signed: 01/05/2019 11:39 AM Electronically Signed By:Radha Sánchez
[2019-01-05] MEDS: ATORVASTATIN CALCIUM 10 MG TAB PO SCH (20:12)
[2019-01-06] MEDS: NS 1,000 ML IV SCH (02:44)
[2019-01-06] MEDS: GABAPENTIN 400 MG CAP PO SCH ×2 (08:53→14:20)
[2019-01-06] MEDS: FLUoxetine 20 MG CAP PO SCH (08:53)
[2019-01-06] MEDS: ENOXAPARIN 40 MG/0.4 ML SYR SC SCH (08:53)
[2019-01-06] MEDS: DOCUSATE SODIUM 100 MG CAP PO SCH (08:53)
[2019-01-06] MEDS: traMADol 50 MG TAB PO SCH ×2 (08:53→14:20)
[2019-01-06] MEDS: OXYBUTYNIN CHLORIDE 5 MG TAB PO SCH ×2 (08:54→14:20)
[2019-01-06] MEDS: BACLOFEN 10 MG TAB PO SCH ×2 (08:54→14:20)
[2019-01-06 11:28] VITALS: BP 143/95
--- NOTE | 2019-01-06 12:09 | HOSPPROG ---
Hospitalist Progress Note Assessment/Plan: #Complicated UTI -nephrostomy out. Still with ureteral stent -culture with Pseudo. Cont LQ through 01/12 #MS: wheel-chair bound #Kidney stone: plans in place for staged left UVJ stone removal See dictated discharge summary Subjective: per RN, some leaking around tube Objective: Vital Signs Temp Pulse Resp BP Pulse Ox 36.8 C 78 16 143/95 H 93 01/06/19 11:25 01/06/19 11:25 01/06/19 11:25 01/06/19 11:25 01/06/19 11:25 Microbiology 01/02/19 18:30 Blood Panel (PCR) - Final Blood No Organism Detected By Pcr Laboratory Results 01/05/19 05:00 01/05/19 05:00 01/05/19 01/06/19 01/07/19 05:59 05:59 05:59 Intake Total 2040 Output Total 2074 1600 Balance -34 -150 400 - Time Spent With Patient Time Spent with Patient: greater than 35 minutes Time Spent with Patient: Greater than 35 minutes spent on this patients care, greater than 50% of time spent counseling, educating, and coordinating care regarding the above mentioned plan. - Physical Exam Constitutional: obese Eyes: PERRL Ears, Nose, Mouth, Throat: moist mucous membranes Cardiovascular: regular rate and rhythym Respiratory: no respiratory distress Gastrointestinal: other (ostomy with brown stool ) Genitourinary: other (suprapubic catheter) Skin: warm Neurologic: AAOx3, CN II-XII Intact ICD10 Worksheet Patient Problems: Problems Problem Status Onset Chest pain Acute Urinary tract infection Acute
--- NOTE | 2019-01-06 12:25 | PDIAF ---
- Diagnosis Diagnosis: UTI Code Status: Full Code - Medication Management Discharge Medications: electronically signed and located in the Home Medication List. - Orders Services needed: Home Care, Registered Nurse, Physical Therapy, Occupational Therapy Home Care Face to Face: I certify that this patient was under my care and that I had the required [id number] encounter meeting the encounter requirements on the discharge day. My findings support the fact that the patient is homebound as defined in Home Care Face to Face Continued: CMS Chapter 7 Medicare Benefits Manual 30.1.1 , The condition of the patient is such that there exists a normal inability to leave home and consequently, leaving home would require a considerable and taxing effort. Isolation Type: None - Follow Up Care Current Providers and Referrals: Helder Venegas MD [Medical Doctor] - Patient,NotPresent [Primary Care Provider] - As per Instructions
--- NOTE | 2019-01-06 13:41 | GDS ---
[f rep st] DISCHARGE SUMMARY DISCHARGE DIAGNOSES: 1. Complicated UTI, Marina albicans on culture. 2. Multiple sclerosis. 3. Large left ureteral stone. 4. Hypertension. 5. Neurogenic bladder with chronic indwelling German. HISTORY OF PRESENT ILLNESS: A pleasant 58-year-old female with multiple sclerosis, was recently hosp italized at [facility] in early December with large left-sided nephro ureterolithiasis neces sitating nephrostomy tube and could not be fully removed. Day after discharge she started having sub jective fevers, presented to [facility]. Urinalysis was notable for 2+ leuks and 50-18 0 WBCs. HOSPITAL COURSE BY PROBLEM: 1. Complicated UTI: Due to large ureteral stone. Recent nephrostomy along with suprapubic catheter . Culture here is positive for Marina albicans, greater than 100,000 K colonies. She was initially treated for Pseudomonas coverage given positive culture on December 08. She has remained afebrile. B lood culture positive for coag-negative Staph, likely contaminant. I discussed case with Dr. Kwon wh o recommended fluconazole 200 daily until stone removed. I will discontinue Levaquin. He will see h er on January 11 in clinic. 2. MS. Continue home medications. 3. Kidney/ureteral stone: Dr. Venegas plans for staged procedures for removal of impacted stone. 4. Hypertension. Home medications. DISPOSITION: Patient is stable for discharge home with home health care and private care at home. NEW MEDICATIONS: Fluconazole. FOLLOWUP: 1. Dr. Venegas (I discussed the case with him prior to discharge). 2. Dr. Kwon. 3. PCP. TIME SPENT: Time spent on discharge is greater than [address] Kwon and Dr. Me jennigns. /[id number]/MODL
--- NOTE | 2019-01-06 14:10 | ASMTDCNOTE ---
Case Management Discharge Discharge Order Complete? Answers: Yes Patient to Obtain Answers: via Family Medications Transportation Arranged Answers: [facility] Stretcher Case Management Transport Answers: Yes Form Complete Faxed Final Orders Answers: Yes Agency/Facility Transfer Answers: Yes Report Printed & Faxed to Receiving Agency Family Notified Answers: Yes Notes: Carolyn, sister: Discharge Comments Notes: CM spoke with pt and her sister, Carolyn. [facility] BLS transportation arranged. Lockbox code for pt's house provided to [facility]. Discharge orders submit via [employer] to [facility]. Carolyn said she would contact her other caregivers to resume services. No other CM needs identified at this time. Date Signed: 01/06/2019 02:09 PM Electronically Signed By:IZABELA St
--- NOTE | 2019-01-06 14:15 | ASDISCHSUM ---
Discharge Information Plan Status:Home with Home Health Medically Cleared to Leave: Discharge Date: D/C Disposition: [facility] D/C Disposition:[facility] Projected Discharge Date:01/05/2019 11:00 AM Transportation at D/C:ALS/BLS Discharge Delay Reason: Follow-Up Date:01/05/2019 11:00 AM Discharge Slot: Final Diagnosis: Placement Information Referral Type:*Home Health Care Services Referral ID:[id number] Provider Name:[facility] Address 1:[address] Phone Number: Address 2: Fax Number: City:[place] Selection Factors: State:[place] Patient Contact Information Contact Name:ZAINAB Relationship:Sister Address:[address] City:[place] Alternate Phone: State/Zip Code:[place] [address] Email: Financial Information Financial Class:Medicare Primary Plan Desc:MEDICARE INPATIENT Primary Plan Number:[id number] Secondary Plan Desc:[place] Secondary Plan Number:[id number] Assessment Information [facility] CM Progress Note CM Note CM Note Notes: Patient discussed during clinical rounds. Sara returned to [facility] after discharge on 01/01/19 for treatment for UTI. Patient to discharge home to and return to care with [facility]. CM to follow. D/C Plan: [facility]. Date Signed: 01/03/2019 02:41 PM Electronically Signed By:Heidy Taveras LACE LACGemma Length of stay for Answers: 3 days current admission Acuity / Level of Answers: Yes Care: Did the patient have an inpatient admission? Comorbidities - select Answers: Opioid dependence all that apply / Chronic pain Other Notes: Multiple sclerosis # of Emergency department Answers: 1-2 visits in the last 6 months Score: 12 Date Signed: 01/06/2019 02:14 PM Electronically Signed By:IZABELA St [facility] CM Progress Note CM Note CM Note Notes: Met with pt in her room. Pt states that she lives alone. Confirmed that she used [facility] for RN services. [facility] referral to [facility] CM will continue to follow. CM D/C plan: Home with [facility] Date Signed: 01/04/2019 11:23 AM Electronically Signed By:Radha Sánchez [facility] CM Progress Note CM Note CM Note Notes: Per Dr. Davis, pt will most likely D/C tomorrow (Saturday 01/06). [facility] has accepted her for continuation of RN and caregiver services. CM will be available should further needs arise. CM D/C Plan: Home with [facility] RN and caregiver services Date Signed: 01/05/2019 11:39 AM Electronically Signed By:Radha Sánchez Case Management Discharge Plan Note Case Management Discharge Discharge Order Complete? Answers: Yes Patient to Obtain Answers: via Family Medications Transportation Arranged Answers: [facility] Stretcher Case Management Transport Answers: Yes Form Complete Faxed Final Orders Answers: Yes Agency/Facility Transfer Answers: Yes Report Printed & Faxed to Receiving Agency Family Notified Answers: Yes Notes: Carolyn, sister: [phone] Discharge Comments Notes: spoke with pt and her sister, Carolyn. [facility] BLS transportation arranged. Lockbox code for pt's house provided to [facility]. Discharge orders submit via [place] to [facility]. Carolyn said she would contact her other caregivers to resume services. No other CM needs identified at this time. Date Signed: 01/06/2019 02:09 PM Electronically Signed By:IZABELA St Intervention Information Intervention Type:*IM-Signed Date of Service:01/06/2019 09:52 AM Patient Type:Inpatient Staff Member:Shayy Wood Hours: Discipline: Severity: Comment:
--- NOTE | 2019-01-06 18:32 | CPEKG ---
Test Reason : OPEN Blood Pressure : / mmHG Vent. Rate : 083 BPM Atrial Rate : 083 BPM P-R Int : 140 ms QRS Dur : 090 ms QT Int : 396 ms P-R-T Axes : 019 -31 029 degrees QTc Int : 466 ms SINUS RHYTHM LEFT AXIS DEVIATION Confirmed by Orlando Ulloa ([id number]) on 01/06/2019 6:31:55 PM Referred By: Raffaele Mcmahon Confirmed By:Orlando Ulloa
== END 2019-01-06 16:16 | disposition home health service (06) | DRG 758 ==
LOC: EDUNIT# → F1N 19:39
PROVIDERS: ADMIT Internal Medicine; ATTEND Internal Medicine
PROC: 0TP5X0Z Removal of Drainage Device from Kidney, External Approach (ICD-10-PCS; principal; 2019-01-05)
DX: B37.49 Other urogenital candidiasis (principal); N20.1 Calculus of ureter; G35 Multiple sclerosis; N31.9 Neuromuscular dysfunction of bladder, unspecified; I10 Essential (primary) hypertension; Z96.0 Presence of urogenital implants; F17.210 Nicotine dependence, cigarettes, uncomplicated; Z99.3 Dependence on wheelchair
CPT/HCPCS: 96365; 97161-GP; 97167-GO; J0696; J1642; J1644; J1650; J1956; Q9967

== ENCOUNTER → 2019-01-21 | Outpatient (CLI) | payer OTHER, MEDICAID | LOC: FIMAGING 15:20 | PROVIDERS: ATTEND Specialist | DX: N20.0 Calculus of kidney (principal) ==

== ENCOUNTER 2019-01-28 12:10 | Day surgery (SDC) | payer OTHER, MEDICAID ==
[2019-01-28] MEDS ORDERED: LIDOCAINE 1% 2 ML INJ ID PRN (12:27)
[2019-01-28] MEDS ORDERED: LR 1,000 ML IV ONE ×2 (12:27→12:52)
[2019-01-28] MEDS ORDERED: LIDOCAINE 2% JELLY 20 ML (UROJECT) ONE (12:31)
[2019-01-28] MEDS ORDERED: IOPAMIDOL (ISOVUE-M 300) 15 ML VIAL ONE (12:31)
--- NOTE | 2019-01-28 12:57 | PDANEPAE ---
ANE History of Present Illness ureterolithiasis here for laser lithotripsy ANE Past Medical History - Cardiovascular History Hx Hypertension: No Hx Arrhythmias: No Hx Chest Pain: No Hx Coronary Artery / Peripheral Vascular Disease: No Hx CHF / Valvular Disease: No Hx Palpitations: No - Pulmonary History Hx COPD: No Hx Asthma/Reactive Airway Disease: No Hx Recent Upper Respiratory Infection: No Hx Oxygen in Use at Home: No Hx Sleep Apnea: No Sleep Apnea Screening Result - Last Documented: Negative Pulmonary History Comment: URI in August 2018 - Neurologic History Hx Cerebrovascular Accident: No Hx Seizures: No Hx Dementia: No Neurologic History Comment: MS INACTIVE IN W/C - Endocrine History Hx Diabetes: No - Renal History Hx Renal Disorders: Yes Renal History Comment: 2 kidney stones, suprapubic catheter - Liver History Hx Hepatic Disorders: No - Neurological & Psychiatric Hx Hx Neurological and Psychiatric Disorders: Yes Neurological / Psychiatric History Comment: Depression - Cancer History Hx Cancer: No - Congenital Disorder History Hx Congenital Disorders: No - GI History Hx Gastrointestinal Disorders: Yes Gastrointestinal History Comment: colostomy - Other Health History Other Health History: Multiple Sclerosis - Chronic Pain History Chronic Pain: Yes - Surgical History Prior Surgeries: suprapubic catherter, colostomy, colonoscopy, ANE Review of Systems Review of Systems: - Exercise capacity METS (RN): 1 METS ANE Patient History - Allergies Allergies/Adverse Reactions: carbamazepine [From Tegretol] Allergy (Verified 01/02/19 16:42) blisters/ rash latex Allergy (Verified 01/02/19 16:42) blisters/ rash - Home Medications Home medications: home medication list seen and reviewed Home Medications: Aspirin [Aspirin 325 mg (*)] 325 mg PO DAILY 12/30/18 [Last Taken 01/02/19] Baclofen [Baclofen 10 mg (*)] 10 mg PO TID@08,1430,20 12/30/18 [Last Taken 01/02 14:30] Calcium Carb W/Vit D [Calcium Carb W/Vit D 500/200 (*)] 500 mg PO DAILY14 [Last Taken 01/02/19] Docusate Sodium [Colace 100 MG (*)] 100 mg PO BID 12/30/18 [Last Taken 01/02/19] FLUoxetine [Prozac 20 MG (*)] 80 mg PO DAILY 12/30/18 [Last Taken 01/02/19] Gabapentin [Neurontin 400 MG (*)] 400 mg PO TID@08,1430,12/30/18 [Last Taken 01/02/19 14:30] Herbals/Supplements -Info Only 1 ea PO DAILY 12/30/18 [Last Taken Unknown] Magnesium Hydroxide [Milk of Magnesia] 5 ml PO HS PRN 12/30/18 [Last Taken Unknown] Naproxen Sodium [Aleve 220 MG (*)] 220 mg PO BID PRN 12/30/18 [Last Taken Unknown] Nystatin [Mycostatin Cream (RX)] 1 rubi TP BID PRN 12/30/18 [Last Taken Unknown] Ocrelizumab [Ocrevus] 600 mg IV .[id number] 12/30/18 [Last Taken 07/19/18] Ondansetron Odt [Zofran Odt 4 mg (*)] 4 mg PO Q4 PRN 12/30/18 [Last Taken Unknown] Oxybutynin Chloride [Ditropan] 5 mg PO TID@08,1430,12/30/18 [Last Taken 01/02 14:30] Polyethylene Glycol 3350 [Miralax 17 gm (*)] 17 gm PO DAILY PRN 12/30/18 [Last Taken Unknown] Sennosides [Senna Lax] 8.6 mg PO DAILY PRN 12/30/18 [Last Taken Unknown] Simvastatin [Zocor] 20 mg PO HS 12/30/18 [Last Taken 01/01/19] amLODIPine BESYLATE [Norvasc 10 mg (*)] 10 mg PO DAILY 12/30/18 [Last Taken 12/18] tiZANidine HCL [Zanaflex 2MG (*)] 4 mg PO DAILY@08 12/30/18 [Last Taken 01/02/19 ] tiZANidine HCL [Zanaflex 2MG (*)] 8 mg PO HS 12/30/18 [Last Taken 01/01/19] traMADol [Ultram 50 mg (*)] 100 mg PO TID@08,1430,20 12/30/18 [Last Taken 14:30] - NPO status NPO Status: no food or drink >8 hours - Anes Hx Anes Hx: no prior problems - Smoking Hx Smoking Status: Heavy smoker - Alcohol Use Alcohol Use: Occasionally - Family Anes Hx Family Hx Anesthesia Complications: none ANE Labs/Vital Signs - Vital Signs Height: 175.26 cm Weight: 104.326 kg ANE Physical Exam - Airway Neck exam: FROM Mallampati Score: Class 2 Mouth exam: normal dental/mouth exam - Pulmonary Pulmonary: no respiratory distress, clear to auscultation - Cardiovascular Cardiovascular: regular rate and rhythym, no murmur, rub, or gallop - ASA Status ASA Status: III ANE Anesthesia Plan Anesthesia Plan: general endotracheal anesthesia
[2019-01-28] MEDS ORDERED: MIDAZOLAM 2 MG/2 ML VIAL IVP ONE (12:58)
[2019-01-28] MEDS ORDERED: fentaNYL 100 MCG/2 ML INJ ONE (13:03)
[2019-01-28] MEDS ORDERED: PROPOFOL 200 MG/20 ML VIAL ONE (13:03)
--- NOTE | 2019-01-28 13:39 | PDHPUP ---
History & Physical Update H&P update statement: This history and physical update is based on an assessment of the patient which was completed after admission or registration (within 24 hours), but prior to the surgery/procedure. H&P update: no change in patient's condition since H&P completed
[2019-01-28] MEDS ORDERED: cefTAZidime PENTAHYDRATE 2 GM in NS 100 ML IV ONE (13:45)
[2019-01-28] MEDS ORDERED: ROCURONIUM 50 MG/5 ML VIAL ONE (13:55)
[2019-01-28] MEDS ORDERED: LIDOCAINE 2% 100 MG/5 ML SYR ONE (13:55)
[2019-01-28] MEDS ORDERED: ONDANSETRON 4 MG/2 ML VIAL ONE (14:38)
[2019-01-28] MEDS ORDERED: DEXAMETHASONE 4 MG/ML VIAL ONE (14:38)
[2019-01-28] MEDS ORDERED: SUGAMMADEX SODIUM 200 MG/2 ML VIAL IVP ONE (15:19)
[2019-01-28] MEDS ORDERED: HYDROCODONE/APAP 5/325 TAB PO PRN (15:35)
[2019-01-28] MEDS ORDERED: ACETAMINOPHEN 500 MG TAB PO PRN (15:35)
[2019-01-28] MEDS ORDERED: ONDANSETRON 4 MG/2 ML VIAL IVP PRN (15:35)
[2019-01-28] MEDS ORDERED: PROMETHAZINE HCL 25 MG/ML INJ IVP PRN (15:35)
[2019-01-28] MEDS ORDERED: fentaNYL 100 MCG/2 ML INJ IVP PRN (15:35)
[2019-01-28] MEDS ORDERED: NALOXONE HCL 0.4 MG/ML INJ IVP PRN (15:35)
[2019-01-28] MEDS ORDERED: oxyCODONE IR 5 MG TAB PO PRN (15:35)
--- NOTE | 2019-01-28 15:38 | POSTANESTH ---
Post Anesthetic Evaluation Cardiovascular Status: Normal, Stable, Similar to Pre-Op Cond Respiratory Status: Normal, Stable, Similar to Pre-op Cond. Level of Consciousness/Mental Status: Can Participate in Eval, Mildly Sleepy, Arousable Pain Control: Adequate, Prn Tx Ordered Nausea/Vomiting Control: Adequate, Prn Tx Ordered Complications Possibly Related to Anesthesia: None Noted
--- NOTE | 2019-01-28 15:51 | POSTOPPROG ---
Post Op Note Date of Operation: 01/28/19 Surgeon: Helder Venegas (# [id number]) Anesthesia: GET(General Endotracheal) Pre-op Diagnosis: Left nephroureterolithiasis, s/p stent placement, chronic SP tube Post-op Diagnosis: Left nephroureterolithiasis, s/p stent placement, chronic SP tube Procedure: SP tube replacement, stent removal, ureteroscopy w/ laser, RGP, stent rplmt Findings: See op note Inf/Abcess present in the surg proc area at time of surgery?: No Depth: Superfical (Skin SQ) EBL: Minimal Complications: None Drains: Other (4.7 Fr. multilength left ureteral stent) Specimen(s): None
[2019-01-28 16:53] VITALS: BP 150/90
--- NOTE | 2019-01-28 19:19 | GOP ---
[f rep st] OPERATIVE REPORT DATE OF OPERATION: 01/28/2019 SURGEON: Helder Venegas MD ANESTHESIA: General endotracheal. PREOPERATIVE DIAGNOSIS: 1. Significant volume left nephroureterolithiasis. 2. Status post left ureteral stent placement. 3. Neurogenic bladder with chronic suprapubic catheter. POSTOPERATIVE DIAGNOSIS: 1. Significant volume left nephroureterolithiasis. 2. Status post left ureteral stent placement. 3. Neurogenic bladder with chronic suprapubic catheter. PROCEDURE PERFORMED: 1. Suprapubic tube replacement under anesthesia. 2. Cystourethroscopy, with left ureteral stent removal. 3. Left retrograde pyelography. 4. Left ureterorenoscopy with holmium laser calculus lithotripsy. 5. Left ureteral stent replacement (4.7-Hungarian Multi-Link). FINDINGS: 1. Significant circumferential chronic inflammation of the left proximal ureteral mucosa and uretero pelvic junction. 2. Possible impacted calculus within the proximal ureter that was successfully treated today. SPECIMENS: None. ESTIMATED BLOOD LOSS: Minimal. INDICATIONS: This woman underwent percutaneous nephrostolithotomy in the beginning of this month. S he was noted at that time to have an impacted left proximal ureteral calculus, which I could not easi ly reach through the established percutaneous access at the time of percutaneous nephrostolithotomy. Therefore, she presents for retrograde attempts at addressing her remaining renal and ureteral stone burden. The indications for the procedures, as well as potential risks and complications were discu ssed with the patient and her sister preoperatively. They appeared to understand, their questions we re answered, and they wished to proceed. Written informed surgical consent was thereafter obtained. DESCRIPTION OF PROCEDURE: The patient was brought to the operating room and administered general end otracheal anesthesia. She was carefully placed in the dorsal lithotomy position on the cystoscopic t able utilizing stirrups. The genital area and lower abdomen, including the indwelling suprapubic cat heter, were sterilely prepped and draped in standard fashion. The existing indwelling suprapubic cat heter was removed and replaced with an 18-Hungarian silastic German. 10 cc of sterile water was placed i n the balloon. Cystoscopy was then performed with 30 degree and 70-degree lenses. There was chronic inflammation noted within the bladder. Left ureteral stent was seen exiting the ureteral orifice. The newly placed suprapubic catheter was confirmed to be in proper position. There were no obvious t umors seen within the bladder. Flexible grasping forceps were then used to pull the distal tip of the existing indwelling stent from the urethral meatus. A 0.035 inch hydrophilic guidewire was then advanced through the lumen of the ureteral stent and into the renal collecting system as seen on fluoroscopy. The existing ureteral st ent was removed while keeping the guidewire in place. The cystoscope was reinserted alongside the gu idewire, along with the 5-Hungarian open-ended ureteral catheter. The ureteral catheter was advanced to the ureteropelvic junction and contrast was injected to opacify the left renal collecting system and proximal ureter. There was a compound calyx involving the left upper pole of the kidney. There wer e some postoperative changes noted with the left lower pole collecting system, consistent with recent percutaneous nephrostolithotomy. No extravasation was seen. The left proximal ureter was slightly tapered, but there was no obvious evidence of visualized nephroureterolithiasis at this point. I dec ided to proceed initially with semi-rigid ureteroscopy. The cystoscope and the ureteral catheter wer e removed while keeping the indwelling previously placed guidewire in place. Semi-rigid ureteroscopy was performed alongside this guidewire. I advanced the semi-rigid ureteroscope to the proximal uret er. There was relative inflexibility of the proximal ureter which made it difficult to advance the s rochelle-rigid ureteroscope all the way to the ureteral ureteropelvic junction. I did not want to force t he issue and risk injuring her ureter. Therefore, I decided to proceed with flexible ureterorenoscop y. A 0.035 inch superstiff Amplatz guidewire was advanced through the ureteroscope and into the vega l collecting system as confirmed fluoroscopically. The ureteroscope was then removed, thereby keepin g [address] Under fluoroscopic guidance, a 35 cm hydrophilic ureteral access sheath was advanced over the Amplatz guidewire and positioned at the ureteropelvic junction. The inner obturat or and Amplatz guidewire were removed while keeping the outer portion of the access sheath and second isha guidewire in place. Flexible ureterorenoscopy was then performed. The ureteroscope was advanced into the proximal ureter. At about the level of L2-L3 disk space, there was what appeared to be angie e potentially impacted calculus fragments within the ureteral lumen laterally. I was able to careful ly tease this material from the wall of the ureter carefully with the tip of a 200 micron holmium las er fiber. There also appeared to be significant amount of chronic mucosal inflammation circumferenti ally with the proximal ureter and ureteropelvic junction. Visualization was somewhat difficult due t o some mucus that was present that was probably emanating from the kidney. However, there appeared t o be a sizable calculus fragment within the proximal ureter which I was able to gently push into the left renal pelvis after partially ablating it with a 200 micron holmium laser fiber. Once the domina nt calculus was within the renal pelvis, I was able to completely fragment it into minute pieces usin g the 200 micron laser fiber. The remaining calices of the kidney were examined and there was no obv ious remaining significant sized stones. There was some mucosal inflammation and healing of the lowe r pole calyceal urothelium, likely as a result of recent percutaneous nephrostolithotomy. The ureter oscope was then used to re-examine the proximal ureter. There were visual findings that were concern ing for chronic inflammation that might result in ureteral stricturing once her stent is removed. No netheless, all remaining stone fragments within the proximal ureter had been treated. I flushed out many of the stone fragments within the kidney using irrigation. None of the stone fragments were pur posely removed. The flexible ureteroscope and ureteral access sheath were then removed in tandem. T he ureteral mucosa above it was otherwise unremarkable. The cystoscope was then backloaded over the guidewire and a 4.7-Hungarian Multi-Link hydrophilic ureteral stent was advanced over the guidewire unti l it was properly positioned and seen fluoroscopically in the kidney and cystoscopically in the [facility]. The bladder was then drained of all return which was relatively clear. The instruments were rem micky. It should be mentioned that the newly placed suprapubic catheter was clamped at the beginning of the cystoscopic and ureteroscopic portions of the procedure. It was then unclamped and connected to leg bag drainage. The patient was awakened, extubated, transferred to her bed, then taken to the recovery room. She tolerated the procedure well overall. COMPLICATIONS: None. DISPOSITION: She was transferred to the recovery room in stable condition and will hopefully be disc harged later today with instructions to follow up in approximately 1 month for ureteral stent removal . Copy requested to: Bhavya Talbot /[id number]/MODL
== END 2019-01-28 18:05 | disposition home or self-care (01) ==
LOC: FSGY 12:10
PROVIDERS: ATTEND Specialist
PROC: 0TC78ZZ Extirpation of Matter from Left Ureter, Via Natural or Artificial Opening Endoscopic (ICD-10-PCS; principal; 2019-01-28 13:30)
PROC: 0T778DZ Dilation of Left Ureter with Intraluminal Device, Via Natural or Artificial Opening Endoscopic (ICD-10-PCS; principal; 2019-01-28 13:30)
PROC: 0TP980Z Removal of Drainage Device from Ureter, Via Natural or Artificial Opening Endoscopic (ICD-10-PCS; principal; 2019-01-28 13:30)
PROC: 0T2BX0Z Change Drainage Device in Bladder, External Approach (ICD-10-PCS; principal; 2019-01-28 13:30)
DX: N13.2 Hydronephrosis with renal and ureteral calculous obstruction (principal); G35 Multiple sclerosis; N31.9 Neuromuscular dysfunction of bladder, unspecified; Z93.59 Other cystostomy status; F17.210 Nicotine dependence, cigarettes, uncomplicated; Z85.828 Personal history of other malignant neoplasm of skin
CPT/HCPCS: 51705; 52356; 76000; C1769; C1894; C2625; J0713; J1100; J1642; J2001; J2250; J2405; J2704; J3010; Q9967